=== PATIENT | female | born 1950 | race Caucasian/White ===

== ENCOUNTER → 2017-03-12 12:19 | Outpatient (CLI) | payer MEDICARE, OTHER ==
[2015-12-07 09:34] VITALS: BMI 25.8
[~2017-03-12 12:19] MED LIST: ASPIRIN325 MG PO; CALCIUM 600+D T1 TA1 PO; COLAZAL750 MG PO; FIBER-TABS625 MG PO; FIORICET-COD 51 EACH PO; FLORANEX / LACT1 TAB PO; FUROSEMIDE20 MG PO; IFEREX PO; K-DUR20 MEQ PO; K-TAB10 MEQ PO; LASIX20 MG PO; LEVAQUIN500 MG PO; LIBRAX CAPSULE1 CAP PO; METOPROLOL TART50 MG PO; NITROSTAT0.4 MG SL; NU-IRON 150150 MG PO; PHENERGAN25 MG/ML PO; PLAVIX75 MG PO; PROBIOTIC1 EAC1 PO; QUESTRAN PACK4 G/PKT PO; SOMA350 MG PO; THIAMINE IN100 MG/ML; THIAMINE IN100 MG/ML IM; ZOCOR20 MG PO
[2017-03-12 13:05] LABS: BASOPHILS 0.6 % (0-2); EOSINOPHILS 3.9 % (0-7); HEMATOCRIT 39.7 % (36.0-48.0); HEMOGLOBIN 12.8 g/dL (12-16); IMMATURE GRANULOCYTES 0.2 % (0-5); LYMPHOCYTES 26.6 % (15-50); MCH 30.1 pg (26.0-34.0); MCHC 32.2 g/dL (31.0-37.0); MCV 93.4 fL (80.0-100.0); MEAN PLATELET VOLUME 10.5 fL (7.4-10.4); MONOCYTES 4.7 % (2-11); PLATELET COUNT 225 10x3/uL (130-400); RBC 4.25 10x6/uL (4.00-5.40); RDW 15.2 % (11.5-14.5); WBC 9.9 10x3/uL (4.8-10.8)
[2017-03-12 13:51] LABS: ALBUMIN 3.5 g/dL (3.4-5.0); BILIRUBIN - DIRECT 0.05 mg/dL (0.00-0.30); BILIRUBIN - INDIRECT 0.15 mg/dL (0.00-1.00); BILIRUBIN - TOTAL 0.2 mg/dL (0.2-1.3); PROTEIN - SERUM 6.9 g/dL (6.4-8.2)
== END | disposition home or self-care (01) ==
LOC: D.LAB 12:19
PROVIDERS: Internal Medicine Gastroenterology
DX: K50.90 Crohn's disease, unspecified, without complications (principal); R19.7 Diarrhea, unspecified; R63.4 Abnormal weight loss

== ENCOUNTER → 2017-03-26 08:45 | Outpatient (CLI) | payer MEDICARE, OTHER ==
[2015-12-07 09:34] VITALS: BMI 25.8
[2017-03-26 10:12] LABS: BASOPHILS 0.9 % (0-2); EOSINOPHILS 4.6 % (0-7); HEMATOCRIT 42.4 % (36.0-48.0); HEMOGLOBIN 13.8 g/dL (12-16); IMMATURE GRANULOCYTES 0.1 % (0-5); LYMPHOCYTES 32.6 % (15-50); MCH 30.5 pg (26.0-34.0); MCHC 32.5 g/dL (31.0-37.0); MCV 93.6 fL (80.0-100.0); MEAN PLATELET VOLUME 10.6 fL (7.4-10.4); MONOCYTES 4.9 % (2-11); NEUTROPHILS 56.9 % (40-80); PLATELET COUNT 253 10x3/uL (130-400); RBC 4.53 10x6/uL (4.00-5.40); RDW 15.1 % (11.5-14.5); WBC 8.6 10x3/uL (4.8-10.8)
[2017-03-26 10:31] LABS: ALBUMIN 3.6 g/dL (3.4-5.0); BILIRUBIN - INDIRECT 0.16 mg/dL (0.00-1.00); BILIRUBIN - TOTAL 0.2 mg/dL (0.2-1.3)
[2017-03-26 10:36] LABS: BILIRUBIN - DIRECT 0.04 mg/dL (0.00-0.30)
[2017-03-27 10:17] LABS: HEPATITIS C ANTIBODY <0.1 (0.0-0.9)
== END | disposition home or self-care (01) ==
LOC: D.US 08:45
PROVIDERS: Internal Medicine Gastroenterology
DX: R79.89 Other specified abnormal findings of blood chemistry (principal)

== ENCOUNTER 2017-12-14 10:03 | Emergency (ER) | payer MEDICARE, OTHER ==
[2015-12-07 09:34] VITALS: BMI 25.8
== END 2017-12-14 12:14 | disposition home or self-care (01) ==
LOC: D.ER 10:03
DX: M17.12 Unilateral primary osteoarthritis, left knee (principal); F17.200 Nicotine dependence, unspecified, uncomplicated